=== PATIENT | male | born 1960 | race Caucasian/White ===

== ENCOUNTER 2022-01-26 11:21 | Emergency (ER) | payer MEDICARE, OTHER ==
[~2022-01-26] VITALS: Ht 165.1 cm; Wt 68.0 kg
[2022-01-26] MEDS ORDERED: ACETAMINOPHEN 650 MG/20.3 ML LIQUID UDC PO ONE (11:45)
[2022-01-26] MEDS ORDERED: IBUPROFEN 600 MG TABLET PO ONE (11:45)
[2022-01-26] MEDS ORDERED: ACETAMINOPHEN ES 500 MG TABLET ONE (11:46)
[2022-01-26] MEDS ORDERED: IBUPROFEN 600 MG TABLET ONE (11:49)
--- NOTE | 2022-01-26 11:54 | NUR ---
Dr Wild at the bedside for MSE.
[2022-01-26] MEDS ORDERED: DEXAMETHASONE SOD PHOSPHATE 4 MG INJ IM ONE (12:00)
[2022-01-26] MEDS ORDERED: DEXAMETHASONE SOD PHOSPHATE 4 MG INJ ONE (12:02)
[2022-01-26] MEDS ORDERED: DEXAMETHASONE SOD PHOSPHATE 10 MG INJ ONE (12:02)
[2022-01-26] MEDS ORDERED: ASPI81TA31 PO (12:03)
[2022-01-26] MEDS ORDERED: ATOR80TA PO (12:03)
[2022-01-26] MEDS ORDERED: VENL225T PO (12:03)
[2022-01-26] MEDS ORDERED: CLOP75TA33 PO (12:03)
--- NOTE | 2022-01-26 13:10 | NUR ---
Pt back from Ct scan, resting in bed. Pt states if he doesn't move, his Lt hip isn't painful.
[2022-01-26 13:31] VITALS: BP 111/78
--- NOTE | 2022-01-26 13:33 | NUR ---
Patient discharged to home in stable condition. Written and verbal after care instructions given. Patient verbalizes understanding of instructions. Stressed follow up or return to ER for worsening s/s.
== END 2022-01-26 13:33 | disposition home or self-care (01) ==
LOC: ER 11:21
DX: M25.552 Pain in left hip (principal); S70.02XA Contusion of left hip, initial encounter; W19.XXXA Unspecified fall, initial encounter; Y92.89 Other specified places as the place of occurrence of the external cause; E78.00 Pure hypercholesterolemia, unspecified; Z95.5 Presence of coronary angioplasty implant and graft; Z79.02 Long term (current) use of antithrombotics/antiplatelets; Z96.642 Presence of left artificial hip joint
CPT/HCPCS: 72131; 73502; 73700; 96372; 99285; J1100 ×2; A4663; A9150

== ENCOUNTER 2022-09-10 15:18 | Emergency (ER) | payer MEDICARE, OTHER ==
[~2022-09-10] VITALS: Ht 167.6 cm; Wt 68.0 kg
[~2022-09-10 15:18] MED LIST: ASPI81TA31 PO; ATOR80TA PO; CLOP75TA33 PO; VENL225T PO
--- NOTE | 2022-09-10 15:36 | NUR ---
PT IS IN ROOM #2A. DR KHAN EVALUATED THE PT.
[2022-09-10] MEDS ORDERED: PRED50TA PO (16:21)
[2022-09-10] MEDS ORDERED: VALA100026 PO (16:21)
--- NOTE | 2022-09-10 16:56 | NUR ---
pt was d/c'd to home. d/c instructions given to the pt by dr richmond.
[2022-09-10 16:57] VITALS: BP 139/81
== END 2022-09-10 16:58 | disposition home or self-care (01) ==
LOC: ER 15:18
DX: G51.0 Bell's palsy (principal); R03.0 Elevated blood-pressure reading, without diagnosis of hypertension; E78.00 Pure hypercholesterolemia, unspecified; Z95.5 Presence of coronary angioplasty implant and graft; Z79.02 Long term (current) use of antithrombotics/antiplatelets; Z79.82 Long term (current) use of aspirin; Z79.899 Other long term (current) drug therapy
CPT/HCPCS: 70450; A4663